=== PATIENT | male | born 1975 | race Caucasian/White ===

== ENCOUNTER 2016-12-02 16:33 | Emergency (ER) | payer OTHER ==
[2016-12-02 17:02] VITALS: RESP 16; O2SAT 96
--- NOTE | 2016-12-02 17:41 | EDPHY ---
H & P Stated Complaint: Pt. states nausea and diarrhea yesterday. Today nausea and throat swollen Time Seen by Provider: 12/02/16 17:11 HPI/ROS: CHIEF COMPLAINT: Diarrhea, nausea, throat swelling HISTORY OF PRESENT ILLNESS: This patient is a 41-year-old male who presents to the Emergency Department with complaints of diarrhea, nausea, and throat discomfort. He started exercising for the first time on Tuesday and states that he felt fine until yesterday morning when he began to experience a stress headache, chronic for him, and mild nausea. Last night at dinner, he experienced acute onset diarrhea and worsening nausea that persistent until this morning. Since that time, he reports intermittent mild nausea. This afternoon, when returning home from a school field trip to the local dinner theater, he reports a sensation of throat swelling and tightness that prompted him to present to the ED. He describes it as a pinching sensation. It is located in the anterior neck, below his thyroid. He denies subjective fever, chills, urinary complaints, or vomiting. No difficulty swallowing, cough, dyspnea, or chest pain. He denies any pertinent medical history. REVIEW OF SYSTEMS: A 10 point review of systems was performed and is negative with the exception of the elements mentioned in the history of present illness. Source: Patient Exam Limitations: No limitations - Medical/Surgical History PMH: Stress headaches. Hx Asthma: No Hx Chronic Respiratory Disease: No Hx Diabetes: No Hx Cardiac Disease: No Hx Renal Disease: No Hx Cirrhosis: No Hx Alcoholism: No Hx HIV/AIDS: No Hx Splenectomy or Spleen Trauma: No Other PMH: Med hx-none. Surg-rt thumb - Social History Smoking Status: Never smoked Alcohol Use: Occasionally Additional Social History: Works as a school guidance counselor. Three children; son at bedside. - Physical Exam Exam: General Appearance: Alert, no acute distress. BP 142/94. Eyes: Pupils equal and round, no conjunctival injection, no discharge. ENT, Mouth: Mucous membranes are moist, no oropharyngeal erythema or edema. No evident uvulitis. Swallowing easily. Neck: No lymphadenopathy, supple. No thyromegaly. No bruits. Respiratory: Lungs are clear to auscultation; no wheezes, rales, or rhonchi. No stridor. Cardiovascular: Regular rate and rhythm; no murmur, rub, or gallop. No carotid bruits. Gastrointestinal: Abdomen is soft and non tender, no masses or organomegaly, bowel sounds normal. Skin: Warm and dry, no rashes, normal color. Back: Nontender to palpation over the thoracolumbar spine. Extremities: No lower extremity edema, no calf tenderness or swelling. Neurological: Alert and oriented. Moving all four extremities easily and equally. Psychiatric: Normal affect. Constitutional: Initial Vital Signs Temperature (C) 37.3 C 12/02/16 16:59 Heart Rate 85 12/02/16 16:59 Respiratory Rate 16 12/02/16 16:59 Blood Pressure 142/94 H 12/02/16 16:59 O2 Sat (%) 96 12/02/16 16:59 O2 Delivery Mode Room Air Allergies/Adverse Reactions: No Known Allergies Allergy (Verified 12/02/16 16:58) Home Medications: Medication Instructions Recorded NK [No Known Home Meds] 12/02/16 Medical Decision Making ED Course/Re-evaluation: This normally healthy 41-year-old male presents with complaints of diarrhea, nausea, and throat discomfort He is afebrile and denies subjective fever. His diarrhea and associated nausea have been improving since time of presentation. His abdomen is benign on exam. I discussed with him that he should expect this to continue to improve over the next 24-48 hours. He understands that he should follow-up with his PCP for further evaluation if these complaints do not subside. On exam, there is no apparent oropharyngeal swelling, apparent uvulitis, or thyromegaly. No carotid bruits. Normal heart sounds. There is no evidence of acute allergic reaction. I discussed option for proceeding with imaging at this time (soft tissue neck xray to assess epiglottis), but he declines this. He did understands that the etiology of his throat discomfort is unknown. He does not appear ill and I think the possibility of epiglottitis or retropharyngeal abscess is quite low. He does not describe this as pain, he is no longer experiencing headache, and I do not think that this symptom is suggestive of vascular dissection. He has had no known exposures and I doubt that this is an allergic response. He does not have a foreign body sensation and I do not think that he has an esophageal foreign body. He understands strict return precautions and will be discharged home in good condition. His blood pressure was high in the emergency department. He does not have a history of hypertension. He will have this followed up with his primary care physician. Departure - Departure Disposition: Home, Routine, Self-Care Clinical Impression: Diarrhea Qualifiers: Diarrhea type: presumed infectious Qualified Code(s): A09 - Infectious gastroenteritis and colitis, unspecified Condition: Good Instructions: Acute Diarrhea (ED) Additional Instructions: 1. Take [id number] Benadryl as directed on the box for the next 2-3 days for your swelling. 2. Take 400-600mg Ibuprofen every 6 hours as needed for swelling or pain. 3. You should expect your diarrhea and nausea to improve over the next 24-48 hours. If it does not, please follow-up with your primary care provider. 4. Return to the Emergency Department if you experience difficulty swallowing, difficulty breathing, uncontrollable diarrhea or vomiting, high fever, or for other serious concerns. Referrals: [facility] [Outside] - As per Instructions Report Scribed for: Elizabeth Rudd Report Scribed by: Aisha Pastor Date of Report: 12/02/16 Time of Report: 17:39 Physician Review and Approval Statement: 12/02/16 17:39 Portions of this note were transcribed by the medical instructor. I, Dr. Elizabeth Rudd, personally performed the history, physical exam, and medical decision- making; and confirmed the accuracy of the information in the transcribed note.
[2016-12-02 18:22] VITALS: BP 136/92; PULSE 81; TEMP 98.8
== END 2016-12-02 18:15 | disposition home or self-care (01) ==
LOC: CED 16:33
DX: R19.7 Diarrhea, unspecified (principal)